=== PATIENT | male | born 1995 | race Caucasian/White ===

== ENCOUNTER 2020-08-18 16:07 | Emergency (ER) | payer OTHER ==
[~2020-08-18] VITALS: Ht 165.1 cm; Wt 70.3 kg
[2020-08-18 16:17] VITALS: BP 137/97; Ht 165.1 cm; Wt 70.3 kg
== END 2020-08-18 16:54 | disposition other institution (70) ==
LOC: ED 16:07
DX: Z02.89 Encounter for other administrative examinations (principal)